=== PATIENT | male | born 1950 | race Caucasian/White ===

== ENCOUNTER 2017-11-22 12:32 | Emergency (ER) | payer MEDICARE, OTHER ==
[2017-11-22 13:19] LABS: BASOPHILS % (AUTO) 0.4 % (0.0-5.0); EOSINOPHILS % (AUTO) 2.9 % (0.0-8.0); HEMATOCRIT 45.3 % (42-54); LYMPHOCYTES % (AUTO) 23.1 % (21.0-51.0); MEAN CORPUSCULAR HEMOGLOBIN 31.3 pg (27.0-33.0); MEAN CORPUSCULAR HGB CONC 34.5 g/dL (32.0-36.0); MEAN CORPUSCULAR VOLUME 90.8 fL (79-99); MONOCYTES % (AUTO) 5.4 % (3.0-13.0); NEUTROPHILS % (AUTO) 68.2 % (40.0-77.0); NUCLEATED RED BLOOD CELLS 0.1 % (0.0-0.19); PLATELET COUNT (AUTO) 216 K/uL (130-400); RED BLOOD CELL COUNT(AUTO) 4.99 MIL/uL (4.50-6.20); WHITE BLOOD COUNT (AUTO) 11.2 K/uL (4.8-10.8)
[2017-11-22 13:28] LABS: CREATININE 1.2 mg/dL (0.5-1.5)
[2017-11-22 13:32] LABS: ALBUMIN 3.9 g/dL (3.5-5.0); BILIRUBIN,TOTAL 0.8 mg/dL (0.2-1.0)
[2017-11-22] MEDS ORDERED: SODIUM CHLORIDE 0.9% 1000ML 1,000 ML IV ONE (14:30)
[2017-11-22] MEDS ORDERED: DiphenhydrAMINE HCL 50 MG/ML VIAL ONE (14:30)
[2017-11-22] MEDS ORDERED: METOCLOPRAMIDE 10 MG/2 ML VIAL ONE (14:30)
[2017-11-22] MEDS ORDERED: ONDANSETRON HCL 4 MG/2 ML VIAL ONE (14:31)
[2017-11-22] MEDS ORDERED: KETOROLAC TROMETHAMINE 15MG/ML ONE (14:32)
[2017-11-22] MEDS ORDERED: INSULIN HUMULIN R 100 UNIT/ML 3ML ONE ×2 (14:33→15:42)
== END 2017-11-22 17:22 | disposition home or self-care (01) ==
LOC: EDH 12:32
DX: R42 Dizziness and giddiness (principal); R51 Headache; R53.1 Weakness; E11.9 Type 2 diabetes mellitus without complications; E78.5 Hyperlipidemia, unspecified; I10 Essential (primary) hypertension; Z98.52 Vasectomy status
CPT/HCPCS: 36415; 80053; 82948 ×3; 84484; 85025; 93005; 96361; 96374; 96375; 96376; 99285; J1200; J1815 ×2; J1885; J2405; J2765; J7030

== ENCOUNTER 2018-08-30 07:36 | Emergency (ER) | payer MEDICARE, OTHER ==
[2018-08-30] MEDS ORDERED: DIAZEPAM 5 MG TABLET ONE (08:05)
[2018-08-30] MEDS ORDERED: KETOROLAC TROMETHAMINE 30MG/ML ONE (08:05)
== END 2018-08-30 09:05 | disposition home or self-care (01) ==
LOC: EDH 07:36
DX: M62.830 Muscle spasm of back (principal); E11.9 Type 2 diabetes mellitus without complications; E78.5 Hyperlipidemia, unspecified; I10 Essential (primary) hypertension; Z88.8 Allergy status to other drugs, medicaments and biological substances; Z98.52 Vasectomy status
CPT/HCPCS: 96372; 99283; J1885

== ENCOUNTER 2022-12-13 09:32 | Day surgery (SDC) | payer OTHER ==
[~2022-12-13] VITALS: Ht 180.3 cm; Wt 116.3 kg
[~2022-12-13 09:32] MED LIST: ACET-66 PO; AEC81 PO; DEXT1DRO OP; EMPA25TA PO; FEXO180T94 PO; FINA5TAB41 PO; HYDR25TA PO; INSLAN SQ; LISI40TA9 PO; METO25TA6 PO; MONT-39 PO; MULTIVITAMIN SENIOR PO; OMEP20CA12 PO; SIMV-46 PO; TAMS-1 PO; WITC1MED28 TP
[2022-12-13 09:47] VITALS: BP 140/68
[2022-12-13 11:12] LABS: HEMATOCRIT 40.5 % (42-54); MEAN CORPUSCULAR HEMOGLOBIN 31.1 pg (27.0-33.0); MEAN CORPUSCULAR HGB CONC 33.8 g/dL (32.0-36.0); MEAN CORPUSCULAR VOLUME 91.8 fL (79-99); PLATELET COUNT (AUTO) 193 K/uL (130-400); RED BLOOD CELL COUNT(AUTO) 4.41 MIL/uL (4.50-6.20); RED CELL DISTRIBUTION WIDTH 13.7 % (11.0-15.5); WHITE BLOOD COUNT (AUTO) 7.7 K/uL (4.8-10.8)
[2022-12-13 11:23] LABS: CREATININE 1.2 mg/dL (0.5-1.5); POTASSIUM 3.6 mmol/L (3.5-5.1)
[2022-12-13 11:42] LABS: PROTHROMBIN TIME 10.9 SEC (9.6-11.6)
[2022-12-13 11:43] LABS: PARTIAL THROMBOPLASTIN TIME 26.5 SEC (26.3-35.5)
[2022-12-13] MEDS ORDERED: 0.9%NACL 1000ML 1,000 ML IV ONE (11:45)
[2022-12-13 11:58] LABS: EOSINOPHILS % (MANUAL) 6 % (1-6); LYMPHOCYTES % (MANUAL) 24 % (22-44); MAN.DIFF COMMENT-IMPRESSION MANUAL DIFFERENTIAL; MONOCYTES % (MANUAL) 7 % (2-9); PLATELET MORPHOLOGY COMMENT ADEQUATE; SEGMENTED NEUTROPHILS % 63 % (40-70)
[2022-12-13] MEDS ORDERED: PROPOFOL 10 MG/ML 20ML VIAL IV ONE (12:26)
[2022-12-13] MEDS ORDERED: LIDOCAINE PF 100MG/5ML (2%) SYRINGE 5ML ONE (12:26)
== END 2022-12-13 13:20 | disposition home or self-care (01) ==
LOC: ENDO 09:32 → DAH 09:32 → ENDO 13:20
PROVIDERS: ATTEND Internal Medicine
DX: K22.711 Barrett's esophagus with high grade dysplasia (principal); Z20.822 Contact with and (suspected) exposure to COVID-19; K44.9 Diaphragmatic hernia without obstruction or gangrene; K21.9 Gastro-esophageal reflux disease without esophagitis; K22.89 Other specified disease of esophagus; K31.89 Other diseases of stomach and duodenum; R19.7 Diarrhea, unspecified; G47.33 Obstructive sleep apnea (adult) (pediatric); I49.1 Atrial premature depolarization; I10 Essential (primary) hypertension; E78.5 Hyperlipidemia, unspecified; E11.51 Type 2 diabetes mellitus with diabetic peripheral angiopathy without gangrene; Z86.010 Personal history of colon polyps; Z88.8 Allergy status to other drugs, medicaments and biological substances; Z79.4 Long term (current) use of insulin; Z79.899 Other long term (current) drug therapy; Z79.82 Long term (current) use of aspirin
CPT/HCPCS: 87426; 43237; 80048; 85025; 85610; 85730; 82948; 36415; 71045; 93005; J7030 ×2; J2001; J2704; A4620; A4215 ×2; A4223; A4657 ×2; A7002; A4222; A4221; A4663; A4606; 43235